=== PATIENT | female | born 1990 | race Caucasian/White ===

== ENCOUNTER 2017-11-27 09:02 | Inpatient (IN) ==
[2017-11-27] MEDS ORDERED: Famotidine 20 MG/2 ML VIAL IVP PRN (09:27)
[2017-11-27] MEDS ORDERED: Metoclopramide 10 MG/2 ML VIAL IVP PRN (09:27)
[2017-11-27] MEDS ORDERED: Naloxone 0.4 MG/ML INJ IVP PRN (09:27)
[2017-11-27] MEDS ORDERED: Ondansetron 4 MG/2 ML VIAL IVP PRN (09:27)
[2017-11-27] MEDS ORDERED: miSOPROStol 25 MCG TABLET PO PRN (09:27)
[2017-11-27] MEDS ORDERED: Oxytocin 20 units/ LR 1000 mL 20 UNIT/1,000 ML BAG IVC SCH ×2 (09:30→15:45)
[2017-11-27] MEDS: Ringers Solution, Lactated 1,000 ML IVC SCH ×2 (10:15→22:33)
[2017-11-27 10:25] LABS: Basophils % 0.3 %; Eosinophils # 0.4 K/mcL (0.0-0.6); Eosinophils % 2.8 %; Hematocrit 37.9 % (35.3-44.9); Hemoglobin 13.3 g/dL (11.5-15.4); Immature Granulocytes % 0.5 % (0-4); Lymphocytes # 2.9 K/mcL (0.6-4.6); Lymphocytes % 18.8 %; Mean Corpuscular HGB Conc 35.1 g/dL (31.6-35.5); Mean Corpuscular Hemoglobin 31.7 pg (28.0-33.3); Mean Corpuscular Volume 90.5 fL (83.0-100.0); Mean Platelet Volume 11.2 fL (9.4-12.4); Monocytes # 0.8 K/mcL (0.0-1.3); Monocytes % 5.4 %; Neutrophils # 11.1 K/mcL (1.6-8.9); Platelet Count 285 K/mcL (140-400); Red Blood Count 4.19 M/mcL (3.82-4.97); Segmented Neutrophils % 72.2 %
[2017-11-27 10:38] LABS: Amphetamine Screen,Urine Negative ng/mL (Cutoff=1000); Barbiturate Screen,Urine Negative ng/mL (Cutoff=200); Benzodiazepines Screen,Urine Negative ng/mL (Cutoff=200); Cannabinoid Screen,Urine Negative ng/mL (Cutoff = 50); Cocaine Screen,Urine Negative ng/mL (Cutoff= 300); Opiate Screen,Urine Negative ng/mL (Cutoff=300); Phencyclidine Screen,Urine Negative ng/mL (Cutoff=25)
--- NOTE | 2017-11-27 10:40 | OB/GYN History & Physical ---
Date of Encounter: 11/27/17 Time of Encounter: 10:36 Assessment and Plan (1) 38 weeks gestation of Current visit: Yes Status: Acute (2) Oligohydramnios Current visit: Yes Status: Acute Admit for IOL Wilson balloon placed in cervix using sterile technique. Balloon inflated with 30ml sterile water. Plan for cytotec as long as baby looks well on EFM after wilson. Epidural when requested. Anticipate . Qualifiers: Fetus number: single or unspecified fetus Trimester: third trimester Qualified Code(s): O41.03X0 - Oligohydramnios, third trimester, not applicable or unspecified (3) Rh negative state in antepartum period Current visit: Yes Status: Acute (4) Obesity complicating in third trimester Current visit: Yes Status: Acute History of Present Illness Chief complaint: oligohydramnios, non-reactive NST HPI: Ms. Segundo is a 27 year old female presenting at 38w5d from office for delivery due to oligohydramnios and non-reactive NST. US today showed MAE 5cm. SHe denies any complications in prior to today. SHe denies complaints at this time. Blood type A negative Rubella immune Serologies negative GBS negative Past Med Surg Social Fam HX - Past Medical History Medical history: no medical history Psychiatric history: no psych history - Past Surgical History Surgical History: no surgical history - Social History Smoking Status: Never smoker Smokeless Tobacco Status: No Alcohol use: none Drug use: none - Family History Mother Family Member Ethnicity: Non- Living Status: Still Living Hx Family Cardiac Disorders: No Hx Family Respiratory Disorders: No Hx Family Cancer: No Hx Family GI Disorders: No Hx Family Genitourinary Disorders: No Hx Family Endocrine Disorder: No Hx Family Musculoskeletal Disorders: No Hx Family Neuromuscular Disorders: No Hx Family Neurologic Disorders: No Hx Family HEENT Disorders: No Hx Family Autoimmune Disorders: No Hx Family Reproductive Disorders: No Hx Family Psychosocial Disorders: No Hx Family Medical Disorders: No Obstetrical History - Pregnancies : 1 Medications and Allergies 3 Allergy/AdvReac Type Severity Reaction Status Date / Time No Known Allergies Allergy Verified 11/27/17 09:46 Review of System OB All systems PM: reviewed and no additional remarkable complaints except as stated Exam - Constitutional Constitutional: well developed, well nourished, obese - HEENT HEENT: Mucus Membranes Moist - Lungs Respiratory exam: CTAB - Cardiovascular Cardiovascular exam: RRR, +S1, +S2 - Abdomen Abdomen: Present: gravid, non tender - Extremities Extremities exam: normal inspection, pedal edema (2+ edema bilaterally) Deep Tendon Reflex Grade: 2+ Normal - Vulva Vulva: bilateral: normal - Cervix Dilation: 1 Effacement: 50 Station: -3 - Anus/Rectum Anus/Rectum: Present: normal perianal skin Results Result Diagrams: 11/27/17 09:39 Abnormal lab results WBC 15.4 K/mcL (4.3-11.1) H 11/27/17 09:39 Neutrophils # 11.1 K/mcL (1.6-8.9) H 11/27/17 09:39 All other labs normal. - VTE Reasons for not Prescribing Prophylaxis: Treatment not Indicated - Low risk for VTE
[2017-11-27 10:48] LABS: Alanine Aminotransferase 19 Units/L (7-52); Aspartate Amino Transferase 13 Units/L (13-39); BUN/Creatinine Ratio 16 (6-26); Blood Urea Nitrogen 8 mg/dL (6-20); Lactate Dehydrogenase 153 Units/L (140-271); Uric Acid 4.4 mg/dL (2.3-7.6); eGFR For African Americans > 60 (> 60); eGFR For Non-African Americans > 60 (> 60)
--- NOTE | 2017-11-27 13:19 | OB Labor Progress Note ---
Date of Encounter: 11/27/17 Time of Encounter: 13:17 Labor Progress Note - Subjective Subjective: Pt reports some cramping and pressure. - Cervix Cervix: 3/80/-2 - Heart Tones Heart Tones: Category I - Foster Brook Foster Brook: irregular - Interventions Interventions: gentle pressure applied to wilson. Wilson out. SROM noted for small amount blood tinged fluid. - Plan Plan: Continue to monitor. Epidural when requested. Will augment with pitocin if needed for adequate contractions. Anticipate .
--- NOTE | 2017-11-27 16:45 | OB Labor Progress Note ---
Date of Encounter: 11/27/17 Time of Encounter: 16:43 Labor Progress Note - Subjective Subjective: Pt reports contractions are getting stronger. - Cervix Cervix: 3-4/80/-2 - Heart Tones Heart Tones: Category II, occassional decelerations. Unsure of timing in relationship to contractions. IUPC placed. - Charco Charco: difficult to trace - Interventions Interventions: IUPC placed - Plan Plan: COntinue to monitor and titrate pitocin. Anticipate .
[2017-11-27] MEDS: *HR* Nalbuphine 10 MG/ML AMPUL IVP PRN (22:22)
--- NOTE | 2017-11-27 23:08 | OB Labor Progress Note ---
Date of Encounter: 11/27/17 Time of Encounter: 23:05 Labor Progress Note - Subjective Subjective: Pt reports pain is better with Nubain. - Cervix Cervix: 4/80/-1 - Heart Tones Heart Tones: Category II, occassional variable declerations, moderate variability, tracing reviewed by Dr. Astorga - Bloomsbury Bloomsbury: 1.5-2.5 minutes - Plan Plan: Continue to monitor and titrate pitocin as needed. Epidural if requested. Anticipate .
[2017-11-28] MEDS: *HR* Nalbuphine 10 MG/ML AMPUL IVP PRN (02:01)
[2017-11-28] MEDS ORDERED: *HR* FentaNYL (PF) 100 MCG/2 ML VIAL EP ONE (02:06)
[2017-11-28] MEDS ORDERED: Bupivacaine-MPF 0.25% 10 ML VIAL EP ONE (02:06)
[2017-11-28] MEDS ORDERED: Epidural Premix (fent/bupiv) 110 ML EP ONE (02:15)
[2017-11-28] MEDS ORDERED: Epidural Premix (fent/bupiv) 110 ML EP SCH (02:15)
--- NOTE | 2017-11-28 02:51 | Anesthesia Evaluation PreOp ---
Date of Encounter: 11/28/17 Time of Encounter: 02:09 - Past History Planned Operation: labor epidural Cardiac History: Denies any Significant Hx Pulmonary History: Denies Any Significant HX VARITYPE OPERATOR History: Denies Any Significant HX Other Medical History: Denies Any Significant HX Anesthesia History: No Prior Anesthetic Complications, Past Anesthesia (Had skin lesion excised from face as chils. Denies problems with nesthesia. No FHAP. ) : Yes Alcohol Use: none Drug use: none Medications and Allergies 3 Allergy/AdvReac Type Severity Reaction Status Date / Time No Known Allergies Allergy Verified 11/27/17 09:46 - Meds/Allergy Pre-op Review Medications Reviewed: Yes Allergies Reviewed: Yes Beta Blockers on Current Med List: No Anesthesia Results - Labs 11/27/17 09:39 11/27/17 09:39 Anesthesia Exam 145/84, 97,16,98%. Height: 5'9" Weight: 140 kg, BMI 46 NPO (# of Hours): >8 Pain Scale: 9 Pain Scale Used: Numeric (1 - 10) - HEENT Pupil (Motor): Pupils equal, EOMI Mallampati: III Teeth: Normal Oral Opening: Greater than 3 - VARITYPE OPERATOR LOC: Oriented VARITYPE OPERATOR Motor: Normal RUE, Normal LUE, Normal RLE, Normal LLE, Normal Face VARITYPE OPERATOR Sensory: Normal: RUE, LUE, RLE, LLE, Face - Cardiac Rhythm: Regular - Pulmonary Breath Sounds: bilateral Clear Respiratory Effort: Symmetrical Anesthesia Assess/Plan ASA Score: 3 (BMI 46.) Modified Kristy Scale for Level of Consciousness: Cooperative, oriented, and tranquil Anesthetic Plan: Regional Monitoring Plan: Standard Monitors
--- NOTE | 2017-11-28 02:56 | Anesthesia Procedures ---
Date of Encounter: 11/28/17 Time of Encounter: 02:15 Procedures: Anesthesia - Epidural/Spinal Patient ID/Chart reviewed: Yes Patient examined: Yes OB Eval: Gestational age: 38 OB Eval: : 1 OB Eval: Hx Para: 0 OB Eval: Dilated at (cm): 5 OB Eval: Contractions: Non-stressed pattern Consent Obtained: Yes Supplemental Oxygen: None/Room Air Site Prep: Aseptic Technique, Sterile prep and drape, Povidone-Iodine 1% Patient position: upright Local Anesthetic: Lidocaine 1% Amount of Local Anesthetic used: 5 Touhy Needle Gauge: 18 Touhy Needle Depth (cm): 7 Catheter Depth at Skin (cm): 19 Test Dose (1.5% Lido + Epi): Volume given (mls): 3 Test Dose Result: Negative Loading Dose: 0.25% Marcaine (mls): 8 Loading Dose: Fentanyl (mcg): 100 Loading Dose Administered: Thru Catheter Infusion Med: 0.125% Bupivacaine w/ 2 mcg/ml Fentanyl Infusion Rate (mls/hr): [address]: Tegaderm, Tape Interspace Used: L3-L4 Loss of Resistance (SABINA): Yes Blood: No CSF: No Paresthesia: No Vitals + FHT's: 3 Vital Signs Time 0209 0236 0240 024 BP 145/84 136/64 126/60 138/65 Pulse 97 69 61 6 FHTs 140 130 130 130
[2017-11-28] MEDS ORDERED: Lidocaine/EPI 1:200k 2% PF 20 ML VIAL ONE (04:20)
[2017-11-28] MEDS ORDERED: Azithromycin 500 MG in D5% in Water 250 ML IVPB STA (04:20)
[2017-11-28] MEDS ORDERED: Water for inj. (sterile) 20 ML IV ONE (04:21)
[2017-11-28] MEDS ORDERED: *HR* Oxytocin 10 UNIT/ML VIAL IM ONE (04:24)
[2017-11-28] MEDS ORDERED: Morphine Sulfate/PF 5mg/10mL Vial ONE (04:43)
[2017-11-28] MEDS ORDERED: MORPHINE SUL Oral CONC 10 MG/0.5 ML ORAL.SYG SL PRN (05:01)
[2017-11-28] MEDS ORDERED: *HR* Promethazine 25 MG/ML VIAL IVP PRN (05:01)
[2017-11-28] MEDS ORDERED: *HR* HYDROmorphone (PF) 1 MG/ML SYRINGE IVP PRN ×2 (05:01→07:55)
[2017-11-28] MEDS ORDERED: Acetaminophen IV 1,000 MG/100 ML INFUS..BTL IVPB ONE (05:01)
[2017-11-28] MEDS ORDERED: Ondansetron 4 MG/2 ML VIAL IVP ONE (05:01)
--- NOTE | 2017-11-28 05:38 | OB/GYN Procedure Note ---
Section - Date of procedure: 11/28/17 Preop diagnosis: arrest of dilation, category 2 FHT tracing Post-op diagnosis: same Procedure: section, primary low transverse Surgeon: Richelle Andre Blood Loss: 300 Was there an bilingual executive assistant present: Yes Creative Art Director: Yasmine Gong Anesthesiologist: Esther Damon Rotary Soil Stabilizer Operator: Isela Miller Anesthesia Type: Epidural section complications: none Disposition: L&D Recovery Room Specimens: Placenta - (s) Infant A Delivery Date: 11/28/17 Delivery Time: 04:50 Presentation: vertex Gender: Male Viability: Viable Pounds: 5 Ounces: 12 Gram Weight: 2.605 kg at 1 minute: 8 at 5 minutes: 9 Specimens collected: cord blood, venous cord gases, arterial cord gases Placenta: spontaneous Cord: 3 umbilical vessels - Narrative Narrative: Patient was taken to the operative suite and placed under spinal anesthetic. She was then prepped and draped in normal sterile fashion in the dorsal supine position. Timeout was then performed. Antibiotics were given at room time. SCDs are on and active. Pfannenstiel skin incision is then made and carried through to underlying layer of fascia with the Bovie. The fascia was then incised in the midline and incision extended laterally with the Monique scissors. The fascia was tented up and dissected off the rectus muscles sharply. The rectus muscles were in the midline and the peritoneum was tented up and entered sharply with the Metzenbaum scissors. The peritoneal incision was then extended bluntly. The Lowell retractor was then placed. A low transverse uterine incision was then made. The vertex was brought to the incision and the infant was delivered using fundal pressure. There was no nuchal cord. Cord was clamped and cut. Infant was handed to waiting nursery staff. A segment of cord was collected for gases. Cord blood was collected. Placenta delivered spontaneously complete and intact with a three-vessel cord. The uterus was cleared of all clots and debris using moist laparotomy sponge. The uterine incision was then closed using 0 Vicryl in a running locked fashion. A second layer of the same suture was used to obtain excellent hemostasis. The abdomen was then cleared of all clots and debris using copious irrigation. The fascial incision was then closed using 0 PDS in a running fashion. The subcuticular layer was reapproximated using 3-0 Monocryl in multiple layers. The skin was closed using 4-0 Vicryl in a subcuticular fashion. Kayy dressing is then placed. Mother and taken to recovery in stable condition.
--- NOTE | 2017-11-28 05:44 | OB Labor Progress Note ---
Date of Encounter: 11/28/17 Time of Encounter: 04:15 Labor Progress Note - Subjective Subjective: Called to see patient to evaluate for section. Patient has been 4 cm for quite some time with adequate contractions. She is comfortable with the epidural. She no longer desires to wait for vaginal delivery. - Cervix Cervix: 4 cm per RN - Heart Tones Heart Tones: category 2 FHR tracing - Interventions Interventions: Risks, benefits, and alternatives were discussed with the patient and informed consent obtained. All questions answered. - Plan Plan: Proceed with section and notify anesthesia
--- NOTE | 2017-11-28 06:38 | Anesthesia Evaluation Post Op ---
Date of Encounter: 11/28/17 Time of Encounter: 06:37 - Vital Signs Vital Signs: VSS - Lungs Lungs: Clear Ascult./Percussion - Airway Airway: Non-obstructed - Cardiovascular Regular Rate - Mental Status Mental Status: Alert & Oriented, Answers Appropriately - Pain Pain Scale: 0 Pain Scale used: Numeric (1 - 10) - Nausea Vomiting Nausea Vomiting: Not Present - Hydration Hydration: NPO, Pedraza catheter - Discharge PostOp Status: Transfer Patient to floor
[2017-11-28] MEDS ORDERED: Acetaminophen 325 MG TABLET PO PRN (07:55)
[2017-11-28] MEDS ORDERED: Metoclopramide 10 MG/2 ML VIAL IVP PRN (07:55)
[2017-11-28] MEDS ORDERED: Simethicone 80 MG TAB.CHEW PO PRN (07:55)
[2017-11-28] MEDS ORDERED: Sennosides 8.6 MG TABLET PO PRN (07:55)
[2017-11-28] MEDS ORDERED: Rho Immune Globulin 1,500 UNIT SYRINGE IM ONE (07:55)
[2017-11-28] MEDS ORDERED: Oxytocin 20 units/ LR 1000 mL 20 UNIT/1,000 ML BAG IVC SCH ×2 (07:55)
[2017-11-28] MEDS ORDERED: *HR* OxyCODONE Immed Rel 5 MG TABLET PO PRN (07:55)
[2017-11-28] MEDS ORDERED: *HR* Morphine 2 MG/ML SYRINGE IVP PRN (07:55)
[2017-11-28] MEDS ORDERED: Ondansetron 4 MG/2 ML VIAL IVP PRN (07:55)
[2017-11-28] MEDS ORDERED: Prenatal Vit/FA 1 EACH TABLET PO SCH (09:00)
[2017-11-28] MEDS: Ibuprofen 600 MG TABLET PO PRN (22:45)
[2017-11-29] MEDS: *HR* OxyCODONE/APAP 5/325 TABLET PO PRN ×2 (03:14→21:44)
[2017-11-29] MEDS ORDERED: Lanolin 28 GM TUBE TP PRN (03:18)
[2017-11-29] MEDS ORDERED: Lanolin 7 G OINT...G. TP PRN (05:26)
[2017-11-29] MEDS: Ibuprofen 600 MG TABLET PO PRN ×2 (11:02→16:35)
--- NOTE | 2017-11-29 12:24 | OB/GYN Progress Note ---
Date of Encounter: 11/29/17 Time of Encounter: 12:22 - Assessment and Plan (1) Status post primary low transverse section Current Visit: Yes Status: Acute continue routine /postop care (2) Breast feeding status of mother Current Visit: Yes Status: Acute support prn Subjective - Subjective Principal diagnosis: status post primary c/s Interval history: Patient is doing well. Patient denies any pain at this time. Patient is ambulating back and forth to the nursery without assistance. Patient is using breast pump due to infant being in nursery. Patient reports: appetite normal, voiding normally, pain well controlled, ambulating normally : doing well, nursing well (pumping) Objective - Vital Signs Latest vital signs: Vital Signs Temp Pulse Pulse Resp BP Pulse Ox 11/29/17 08:13 97.9 F 81 16 104/68 11/29/17 03:10 98.5 F 99 16 106/72 97 11/29/17 01:35 90 14 11/28/17 20:20 98.2 F 88 14 116/78 98 11/28/17 17:28 97.6 F 85 16 151/92 11/28/17 16:57 16 Intake and Output 11/28/17 11/29/17 11/29/17 23:59 07:59 15:59 Intake Total 640 / 640 Output Total 350 / 350 400 / 400 600 / 600 Balance -350 / -350 -400 / -400 40 / 40 Intake: Oral 640 / 640 Output: Urine 350 / 350 400 / 400 600 / 600 Other: Meal Breakfast Percent of Meal Consumed 100% Stool Consistency loose # Bowel Movements 1 - Exam Lungs: bilateral: normal Chest: Normal S1, Normal S2 Extremities: Present: normal Abdomen: Present: normal appearance, soft Incision: Present: normal, dry, intact, dressed (MASON dressing) Fundal Height: 2 (U/2)
[2017-11-29 20:30] VITALS: BP 121/69
--- NOTE | 2017-11-29 21:30 | Discharge Summary ---
Date of Encounter: 11/29/17 Time of Encounter: 21:26 - Discharge Diagnosis (1) Status post primary low transverse section Priority: Primary Status: Acute Comments: Continue routine postop care discharge home: infant being transferred to [facility] follow up with Dr. Astorga in 2 weeks (2) Breast feeding status of mother Priority: Secondary Status: Acute Comments: support prn RX for breast pump - Discharge Medications Prescriptions: OxyCODONE/APAP 5/325 [Percocet 5/325 MG] 1 each PO Q4HR PRN 5 Days #30 tablet PRN Reason: Moderate pain 4-6 Ibuprofen [Motrin] 600 mg PO Q6HR PRN #60 tablet PRN Reason: Cramping Breast Pump [BREAST PUMP] 1 each .ROUTE AD #1 each Docusate [Colace] 100 mg PO BID #30 capsule Home Medications: Breast Pump [BREAST PUMP] 1 each .ROUTE AD #1 each 11/29/17 [Rx] Docusate [Colace] 100 mg PO BID #30 capsule 11/29/17 [Rx] Ibuprofen [Motrin] 600 mg PO Q6HR PRN #60 tablet 11/29/17 [Rx] Lanolin 1 appl TP QID PRN tube 11/29/17 [Rx] OxyCODONE/APAP 5/325 [Percocet 5/325 MG] 1 each PO Q4HR PRN 5 Days #30 tablet [Rx] Vit/FA 1 each PO DAILY tablet 11/29/17 [Rx] Simethicone [Gas-X] 80 mg PO TID PRN tab.chew 11/29/17 [Rx] Allergies/Adverse Reactions: 3 Allergy/AdvReac Type Severity Reaction Status Date / Time No Known Allergies Allergy Verified 11/27/17 09:46 Data Procedures and tests throughout hospitalization: Laboratory Tests 11/27/17 11/27/17 11/27/17 09:39 09:39 09:39 WBC 15.4 H RBC 4.19 Hgb 13.3 Hct 37.9 MCV 90.5 MCH 31.7 MCHC 35.1 RDW 13.0 Plt Count 285 MPV 11.2 Immature Gran % 0.5 Seg Neutrophils % 72.2 Lymphocytes % 18.8 Monocytes % 5.4 Eosinophils % 2.8 Basophils % 0.3 Neutrophils # 11.1 H Lymphocytes # 2.9 Monocytes # 0.8 Eosinophils # 0.4 Basophils # 0.0 BUN 8 Creatinine 0.49 L Est GFR ( Amer) > 60 Est GFR (Non-Af Amer) > 60 BUN/Creatinine Ratio 16 Uric Acid 4.4 AST 13 ALT 19 Lactate Dehydrogenase 153 Urine Opiates Screen Negative Ur Barbiturates Screen Negative Ur Phencyclidine Scrn Negative Ur Amphetamines Screen Negative U Benzodiazepines Scrn Negative Urine Cocaine Screen Negative U Marijuana (THC) Screen Negative Baby's Blood Type Mother's Blood Type Rhogam Indicated 11/28/17 06:14 WBC RBC Hgb Hct MCV MCH MCHC RDW Plt Count MPV Immature Gran % Seg Neutrophils % Lymphocytes % Monocytes % Eosinophils % Basophils % Neutrophils # Lymphocytes # Monocytes # Eosinophils # Basophils # BUN Creatinine Est GFR ( Amer) Est GFR (Non-Af Amer) BUN/Creatinine Ratio Uric Acid AST ALT Lactate Dehydrogenase Urine Opiates Screen Ur Barbiturates Screen Ur Phencyclidine Scrn Ur Amphetamines Screen U Benzodiazepines Scrn Urine Cocaine Screen U Marijuana (THC) Screen Baby's Blood Type A RH NEGATIVE Mother's Blood Type A RH NEGATIVE Rhogam Indicated NO Date of admission: 11/27/17 09:02 Primary care physician: PCP NONE Discharging clinician: Leora Gracia Anticipated date of discharge: 11/29/17 - Patient Status Disposition: Home, Self-Care Condition: Good Functional capacity at discharge: independent ambulation - Discharge Instructions Follow Up With: NONE,PCP [Primary Care Provider] - Richelle Astorga DO [Partnered Physician] - - Diet and Activity Activity: increase activity as tolerated Diet: regular diet Hospital Course Delivery: section Episiotomy: none Laceration: none Other procedures: none complications: none Discharge diagnosis: IUP at term delivered baby: male (breast milk, Infant being transferred to [facility]) Time Attestation: Total time spent providing and/or coordinating discharge services: Time Spent: Less than 30 minutes - VTE Reasons for not Prescribing Prophylaxis: Treatment not Indicated - Low risk for VTE Documentation of Mechanical Device: Intermittent pneumatic compression device Exam - Constitutional Vitals: Temp Pulse Resp BP Pulse Ox 98.4 F 101 16 121/69 100 11/29/17 19:43 11/29/17 19:43 11/29/17 19:43 11/29/17 19:43 11/29/17 19:43 General appearance IM: A&O X 3, pleasant, answers questions appropriately - Respiratory Respiratory exam: Present: CTAB - Cardiovascular Cardiovascular exam IM: Present: RRR, +S1, +S2 - GI/Abdominal GI/Abdominal exam IM: normal bowel sounds - Uterine Tone: Firm Uterus Position: 1 Finger Below Umbilicus, Midline - Extremities Exam Extremities exam IM: Present: full ROM, normal inspection, pedal edema (2+ bilateral lower extremities) - Neurological Exam Neurological exam: alert, oriented X3, reflexes normal - Other Additional findings: MASON dressing. Patient given instructions on care.
== END 2017-11-29 22:20 | disposition home or self-care (01) | DRG 765 ==
LOC: 1NENULAB → OBSVTOIN 09:02 → 1NENUOBS 11-28 08:39
PROVIDERS: ADMIT Obstetrics & Gynecology; ATTEND Obstetrics & Gynecology